=== PATIENT | male | born 1940 | race Caucasian/White ===

== ENCOUNTER 2018-11-27 18:09 | Inpatient (IN) | payer MEDICARE, OTHER | END 2018-12-01 15:39 | disposition home or self-care (01) | LOC: ER 18:09 → PCU 3S 11-28 09:20 → ED HOLD 21:38 | DX: G93.40 Encephalopathy, unspecified (principal); J96.02 Acute respiratory failure with hypercapnia; J96.01 Acute respiratory failure with hypoxia; J44.1 Chronic obstructive pulmonary disease with (acute) exacerbation ==

== ENCOUNTER 2021-03-27 09:13 | Inpatient (IN) | payer MEDICARE, OTHER ==
[~2021-03-27] VITALS: Ht 167.6 cm; Wt 72.3 kg
[~2021-03-27 09:13] MED LIST: ALBU18HF2 INH; ASCO500T20 PO; ASPI-1475 PO; ATOR10TA70 PO; CHOL100017 PO; CLOP75TA33 PO; CYAN500T71 PO; FAMO40TA7 PO; FERR325T29 PO; FLO0.4C PO; FLUT1DIS20 IH; FOLI0.4T14 PO; FURO-150 PO; ICOS1CAP PO; LEVO75TA7 PO; LISI-790 PO; METO-384 PO
[2021-03-27 09:52] LABS: BASOPHILS % (AUTO) 0.3 % (0-1); EOSINOPHILS # (AUTO) 0.1 X10'3 (0-0.9); EOSINOPHILS % (AUTO) 0.4 % (0-6); HEMATOCRIT 24.7 % (42.0-52.0); HEMOGLOBIN 7.7 g/dl (14.0-17.9); LYMPHOCYTES # (AUTO) 1.1 X10'3 (1.1-4.8); MEAN CORPUSCULAR HEMOGLOBIN 29.2 PG (27.0-31.0); MEAN CORPUSCULAR HGB CONC 31.3 g/dL (33.0-36.5); MEAN CORPUSCULAR VOLUME 93.1 FL (78-98); MEAN PLATELET VOLUME 7.3 FL (7.4-10.4); MONOCYTES # (AUTO) 1.1 X10'3 (0-0.9); MONOCYTES % (AUTO) 9.1 % (2-12); NEUTROPHILS # (AUTO) 10.2 X10'3 (1.8-7.7); NEUTROPHILS % (AUTO) 81.2 % (42-75); PLATELET COUNT 259 X10'3 (140-440); RED BLOOD COUNT 2.65 X10'6 (4.70-6.10); RED CELL DISTRIBUTION WIDTH 17.7 % (11.5-14.5); WHITE BLOOD COUNT 12.6 X10'3 (4.5-11.0)
[2021-03-27 10:07] LABS: ALANINE AMINOTRANSFERASE 13 U/L (12-78); ALBUMIN 2.7 G/DL (3.4-5.0); ALBUMIN/GLOBULIN RATIO 0.7 (1.1-1.5); ALKALINE PHOSPHATASE 99 IU/L (46-116); ANION GAP 5 (8-16); ASPARTATE AMINO TRANSFERASE 14 U/L (10-37); BILIRUBIN,TOTAL 0.6 MG/DL (0.1-1.0); BLOOD UREA NITROGEN 27 MG/DL (7-18); BUN/CREATININE RATIO 15.4 (5.4-32.0); CALCIUM 8.7 MG/DL (8.5-10.1); CHLORIDE 103 MMOL/L (99-107); CREATININE 1.75 MG/DL (0.60-1.10); GLUCOSE 96 MG/DL (70-104); POTASSIUM 5.1 MMOL/L (3.5-5.1); SODIUM 139 MMOL/L (135-145); TOTAL CARBON DIOXIDE 30.7 MMOL/L (24-32); TOTAL PROTEIN 6.7 G/DL (6.4-8.2); eGFR 38 ML/MIN
[2021-03-27] MEDS ORDERED: CefTRIAXone 2gm/D5W 50ml BAG 50 ML IV ONE (10:45)
[2021-03-27] MEDS ORDERED: azithromycin/NS 500mg/250ml 250 ML IV ONE (10:45)
[2021-03-27] MEDS ORDERED: furosemide 10 MG/1 ML 10ml inj IV ONE (11:05)
[2021-03-27] MEDS ORDERED: ondansetron/PF 4mg/2ml inj IV PRN (11:15)
[2021-03-27] MEDS ORDERED: HYDROcodone/acetaminophen 10/325mg tab PO PRN (11:15)
[2021-03-27] MEDS ORDERED: HYDROcodone/acetaminophen 5mg/325mg tablet PO PRN (11:15)
[2021-03-27] MEDS ORDERED: bisacodyl 10mg suppository rectal RC PRN (11:15)
[2021-03-27] MEDS ORDERED: magnesium 2GM in 50ml NS 50 ML IV PRN (11:15)
[2021-03-27] MEDS ORDERED: potassium Cl 20 mEq SR tablet PO PRN ×2 (11:15)
[2021-03-27] MEDS ORDERED: acetaminophen 325mg tablet PO PRN ×2 (11:15)
[2021-03-27] MEDS ORDERED: mag hydrox/Alum hydrox/simeth 30ml oral suspension PO PRN (11:15)
[2021-03-27] MEDS ORDERED: magnesium Cl slow-release 64mg tablet PO PRN (11:15)
[2021-03-27] MEDS ORDERED: magnesium hydroxide 30ml (MOM) UD suspension PO PRN (11:15)
[2021-03-27] MEDS ORDERED: magnesium 4gm in 100ml NS 100 ML IV PRN (11:15)
[2021-03-27] MEDS ORDERED: potassium Cl 40MEQ/1/2NS 520ml 520 ML IV PRN ×2 (11:15)
--- NOTE | 2021-03-27 16:26 | NUR ---
Patient in room ED 4. I have received report from Lamine JOSEPH and had the opportunity to ask questions and assume patient care.
[2021-03-27 17:00] VITALS: BP 115/40
--- NOTE | 2021-03-27 17:00 | NUR ---
Patient oriented to room. Call light within reach. at bedside. Vital signs in the intervention vital signs routine.
[2021-03-27 18:00] VITALS: BP 104/45
--- NOTE | 2021-03-27 18:30 | NUR ---
Problems reprioritized. Patient report given, questions answered & plan of care reviewed with Jacki JOSEPH. Patient stable at transfer of care.
--- NOTE | 2021-03-27 18:35 | NUR ---
Patient in room PCU 3026. I have received report from Anastasiya JOSEPH and had the opportunity to ask questions and assume patient care. Rounded on patient and introduced self. Discussed plan of care for the evening, patient denies needs.
[2021-03-27] MEDS ORDERED: methylPREDNISolone sod succ 125mg/2ml vial IV ONE (19:00)
[2021-03-27] MEDS: methylPREDNISolone sod succ 125mg/2ml vial IV SCH (20:00)
[2021-03-27] MEDS ORDERED: furosemide 20 MG/2 ML vial IV SCH (20:00)
[2021-03-27] MEDS: K and/or MAG REPLACEMENT MC SCH (20:00)
[2021-03-27] MEDS ORDERED: temazepam 15mg capsule PO PRN (21:00)
[2021-03-27 22:00] VITALS: BP 123/48
[2021-03-27] MEDS: heparin, porcine 5000 units/ml vial SQ SCH (22:02)
--- NOTE | 2021-03-27 22:31 | NUR ---
Doctor paged regarding blood tansfusion PAGER ID: [phone] MESSAGE: Re: Jarvis Marvin 80M rm [id number] Here for CHF exac, anemia, and poss. PNA. Conflicting orders for blood transfusion consent, consent reacquired needing MD signature. Do you want a redraw H/H prior to initiating transfusion? Jacki [phone]
--- NOTE | 2021-03-27 22:33 | NUR ---
Spoke with Dr. Almanza regarding blood transfusion consent. wants to redraw H/H prior to acquiring written consent and initiating blood.
[2021-03-27] MEDS: ipratropium/albuterol 3ml nebule NEB SCH (23:25)
[2021-03-28] VITALS (7 sets, daily range): BP systolic 108–134; BP diastolic 44–53
[2021-03-28 01:23] LABS: BASOPHILS % (AUTO) 0.1 % (0-1); EOSINOPHILS % (AUTO) 0 % (0-6); HEMATOCRIT 24.4 % (42.0-52.0); HEMOGLOBIN 7.8 g/dl (14.0-17.9); LYMPHOCYTES # (AUTO) 0.7 X10'3 (1.1-4.8); LYMPHOCYTES % (AUTO) 5.1 % (21-51); MEAN CORPUSCULAR HEMOGLOBIN 29.5 PG (27.0-31.0); MEAN CORPUSCULAR HGB CONC 31.9 g/dL (33.0-36.5); MEAN CORPUSCULAR VOLUME 92.4 FL (78-98); MEAN PLATELET VOLUME 7.7 FL (7.4-10.4); MONOCYTES # (AUTO) 0.2 X10'3 (0-0.9); MONOCYTES % (AUTO) 1.6 % (2-12); NEUTROPHILS # (AUTO) 12.1 X10'3 (1.8-7.7); NEUTROPHILS % (AUTO) 93.2 % (42-75); PLATELET COUNT 261 X10'3 (140-440); RED BLOOD COUNT 2.64 X10'6 (4.70-6.10); RED CELL DISTRIBUTION WIDTH 17.8 % (11.5-14.5)
[2021-03-28 01:34] LABS: ALANINE AMINOTRANSFERASE 10 U/L (12-78); ALBUMIN 2.6 G/DL (3.4-5.0); ALBUMIN/GLOBULIN RATIO 0.7 (1.1-1.5); ALKALINE PHOSPHATASE 97 IU/L (46-116); ANION GAP 7 (8-16); ASPARTATE AMINO TRANSFERASE 13 U/L (10-37); BILIRUBIN,TOTAL 0.5 MG/DL (0.1-1.0); BLOOD UREA NITROGEN 29 MG/DL (7-18); BUN/CREATININE RATIO 15.2 (5.4-32.0); CALCIUM 8.5 MG/DL (8.5-10.1); CHLORIDE 103 MMOL/L (99-107); CREATININE 1.91 MG/DL (0.60-1.10); GLUCOSE 192 MG/DL (70-104); MAGNESIUM 2.2 MG/DL (1.5-2.4); POTASSIUM 4.7 MMOL/L (3.5-5.1); SODIUM 141 MMOL/L (135-145); TOTAL CARBON DIOXIDE 31.3 MMOL/L (24-32); TOTAL PROTEIN 6.6 G/DL (6.4-8.2); eGFR 34 ML/MIN
--- NOTE | 2021-03-28 01:42 | NUR ---
Doctor Paged PAGER ID: [phone] MESSAGE: Re: Jarvis Marvin 80M rm [id number] Here for Poss CHF exac, PNA, Anemia. Pt H/H has resulted HgB 7.8. Do you want to transfuse? Jacki [phone]
--- NOTE | 2021-03-28 01:43 | NUR ---
Spoke with Dr. Almanza regarding H/H result, Dr. restrepo holding off on transfusion. Previous H/H was 7.7 at 0937 03/27 and 7.8 at 0020 03/28.
[2021-03-28] MEDS: methylPREDNISolone sod succ 125mg/2ml vial IV SCH ×3 (02:01→13:53)
[2021-03-28] MEDS: ipratropium/albuterol 3ml nebule NEB SCH ×4 (02:42→15:32)
--- NOTE | 2021-03-28 05:46 | NUR ---
Found a progress note indicating patient was to be transfused due to HgB 7.7. The order for consent was "emergent" and the [facility] stated "No Active Bleeding", the blood bank would not release blood due to conflicting orders. Did not have signed consent in paper chart and could not located consent in ED. Spoke with Dr. Almanza regarding this issue and he wanted to redraw the H/H before acquiring consent from patient. Notified Cami of the H/H now 7.8, he wanted to wait until the admitting doctor returned before going forward with transfusion. Will notify day nurse.
--- NOTE | 2021-03-28 05:50 | NUR ---
Patient slept comfortably all night
--- NOTE | 2021-03-28 06:24 | NUR ---
Problems reprioritized. Patient report given, questions answered & plan of care reviewed with Anastasiya JOSEPH.
--- NOTE | 2021-03-28 06:31 | NUR ---
Patient in room PCU 3026. I have received report from Jacki JOSEPH and had the opportunity to ask questions and assume patient care.
[2021-03-28] MEDS: heparin, porcine 5000 units/ml vial SQ SCH (07:58)
[2021-03-28] MEDS ORDERED: CefTRIAXone/D5W-Rocephin 1gm 50 ML IV SCH (08:00)
[2021-03-28] MEDS ORDERED: azithromycin 250mg tablet PO SCH (08:00)
[2021-03-28] MEDS: K and/or MAG REPLACEMENT MC SCH (08:00)
[2021-03-28 14:54] LABS: HEMATOCRIT 24.8 % (42.0-52.0); HEMOGLOBIN 8.2 g/dl (14.0-17.9); MEAN CORPUSCULAR HEMOGLOBIN 30.1 PG (27.0-31.0); MEAN CORPUSCULAR HGB CONC 33.1 g/dL (33.0-36.5); MEAN PLATELET VOLUME 7.4 FL (7.4-10.4); PLATELET COUNT 249 X10'3 (140-440); RED BLOOD COUNT 2.73 X10'6 (4.70-6.10); RED CELL DISTRIBUTION WIDTH 16.8 % (11.5-14.5); WHITE BLOOD COUNT 9.2 X10'3 (4.5-11.0)
[2021-03-28] MEDS ORDERED: AZIT500T2 PO (15:20)
[2021-03-28] MEDS ORDERED: CEFD300C3 PO (15:20)
[2021-03-28] MEDS ORDERED: PRED20TA PO (15:20)
--- NOTE | 2021-03-28 16:04 | NUR ---
Patient stable for discharge per doctors orders. Medication and discharge discussed. PIV discontinued cannula intact. Telemetry discontinued. Belongings sent with patient. Wheeled to lobby via nursing staff. Went home with spouse in private vehicle.
[2021-03-28] MEDS ORDERED: lactobacillus rhamnosus 10,000 MMU CELLS/CAPSULE PO SCH (20:00)
--- NOTE | 2021-03-29 14:30 | NUR ---
CASE MANAGEMENT DISCHARGE FOLLOW UP: Spoke with pt's , Neto, via telephone as pt is currently not available. Reports that pt is doing just great; denies pt c/o SOB, CP, weakness/dizziness, fever/chills. States pt wearing 2L/min O2 via NC but that this is his baseline. Verbalizes understanding of s/sx requiring further evaluation/emergent assistance. Verbalizes understanding of new and current medications. Verbalizes compliance with MD discharge instructions. Verbalizes understanding of the importance in making/keeping follow-up appointments, waiting on callback from pt's PMD for appointment, aware that pt will need to get referral for either well services operator or process worker regarding anemia. She states no further questions/concerns at this time.
== END 2021-03-28 16:04 | disposition home or self-care (01) | DRG 193 ==
LOC: ER 09:14 → ED HOLD 11:14 → PCU 3S 16:47
PROVIDERS: ADMIT Family Medicine; ATTEND Family Medicine
PROC: 30233N1 Transfusion of Nonautologous Red Blood Cells into Peripheral Vein, Percutaneous Approach (ICD-10-PCS; principal; 2021-03-28)
DX: J18.9 Pneumonia, unspecified organism (principal); J96.01 Acute respiratory failure with hypoxia; I13.0 Hypertensive heart and chronic kidney disease with heart failure and stage 1 through stage 4 chronic kidney disease, or unspecified chronic kidney disease; J44.0 Chronic obstructive pulmonary disease with (acute) lower respiratory infection; J44.1 Chronic obstructive pulmonary disease with (acute) exacerbation; N18.4 Chronic kidney disease, stage 4 (severe); D46.9 Myelodysplastic syndrome, unspecified; Z20.822 Contact with and (suspected) exposure to COVID-19; G47.30 Sleep apnea, unspecified; E03.9 Hypothyroidism, unspecified; E11.22 Type 2 diabetes mellitus with diabetic chronic kidney disease; E78.5 Hyperlipidemia, unspecified; I25.10 Atherosclerotic heart disease of native coronary artery without angina pectoris; I50.9 Heart failure, unspecified; Z91.041 Radiographic dye allergy status; Z79.899 Other long term (current) drug therapy; Z79.82 Long term (current) use of aspirin; Z83.3 Family history of diabetes mellitus; Z82.49 Family history of ischemic heart disease and other diseases of the circulatory system
CPT/HCPCS: 36415; 36430; 71045; 80053; 83605; 83735; 83880; 84145; 84484; 85025; 85027; 86885; 86900; 86901; 86920; 87040; 87081; 87635; 93005; 94640; 94760; 99285; G0378; J0456; J0696; J1644; J1940; J2930; P9016

== ENCOUNTER 2021-05-16 15:38 | Observation (INO) | payer MEDICARE, OTHER ==
[~2021-05-16] VITALS: Ht 167.6 cm; Wt 78.0 kg
--- NOTE | 2021-05-16 16:51 | NUR ---
PT WAS ON .5 L OF FIO2 IN TRIGE WITH SATS IN MID 70'. FIO2 WAS INCREASED TO 2-3 L WITH NO CHANGE. NOTED THAT PT'S O2 TANK WAS ALMOST EMPTY, CHANGED HIS TANK OUT FOR AN ER TANK AND AT 2 L FIO2 WAS 100%. FIO2 WAS DECREASED TO 1 L.
[2021-05-16 17:21] LABS: BASOPHILS # (AUTO) 0.1 X10'3 (0-0.2); BASOPHILS % (AUTO) 0.7 % (0-1); EOSINOPHILS % (AUTO) 0.2 % (0-6); LYMPHOCYTES # (AUTO) 0.6 X10'3 (1.1-4.8); LYMPHOCYTES % (AUTO) 7.3 % (21-51); MEAN CORPUSCULAR HGB CONC 31.8 g/dL (33.0-36.5); MEAN CORPUSCULAR VOLUME 100.6 FL (78-98); MEAN PLATELET VOLUME 7.7 FL (7.4-10.4); MONOCYTES # (AUTO) 0.1 X10'3 (0-0.9); MONOCYTES % (AUTO) 1.6 % (2-12); NEUTROPHILS # (AUTO) 7.6 X10'3 (1.8-7.7); NEUTROPHILS % (AUTO) 90.2 % (42-75); PLATELET COUNT 226 X10'3 (140-440); RED CELL DISTRIBUTION WIDTH 18.4 % (11.5-14.5); WHITE BLOOD COUNT 8.5 X10'3 (4.5-11.0)
[2021-05-16 17:25] LABS: HEMATOCRIT 21.2 % (42.0-52.0); HEMOGLOBIN 6.7 g/dl (14.0-17.9)
[2021-05-16 17:35] LABS: ALBUMIN 3.4 G/DL (3.4-5.0); ALKALINE PHOSPHATASE 91 IU/L (46-116); ANION GAP 6 (8-16); BILIRUBIN,TOTAL 0.3 MG/DL (0.1-1.0); BLOOD UREA NITROGEN 43 MG/DL (7-18); BUN/CREATININE RATIO 20.8 (5.4-32.0); CALCIUM 8.2 MG/DL (8.5-10.1); CHLORIDE 108 MMOL/L (99-107); CREATININE 2.07 MG/DL (0.60-1.10); GLUCOSE 153 MG/DL (70-104); SODIUM 143 MMOL/L (135-145); TOTAL CARBON DIOXIDE 28.6 MMOL/L (24-32); TOTAL PROTEIN 6.9 G/DL (6.4-8.2); eGFR 31 ML/MIN
[2021-05-16 18:29] LABS: ALANINE AMINOTRANSFERASE 23 U/L (12-78); ASPARTATE AMINO TRANSFERASE 24 U/L (10-37)
[2021-05-16 18:32] LABS: POTASSIUM 5.9 MMOL/L (3.5-5.1)
[2021-05-16] MEDS ORDERED: furosemide 40mg/4ml inj IV ONE (19:35)
[2021-05-16] MEDS ORDERED: normal saline 1000ML IV soln IVB ONE (19:35)
[2021-05-16 19:41] VITALS: BP 151/61
[2021-05-16 19:56] VITALS: BP 154/64
[2021-05-16 20:11] VITALS: BP 154/64
[2021-05-16 20:26] VITALS: BP 152/62
[2021-05-16 20:41] VITALS: BP 149/62
[2021-05-16] MEDS ORDERED: magnesium hydroxide 30ml (MOM) UD suspension PO PRN (20:55)
[2021-05-16] MEDS ORDERED: mag hydrox/Alum hydrox/simeth 30ml oral suspension PO PRN (20:55)
[2021-05-16] MEDS ORDERED: normal saline 1000ml 1,000 ML IV SCH (20:55)
[2021-05-16] MEDS ORDERED: acetaminophen 325mg tablet PO PRN (20:55)
[2021-05-16] MEDS ORDERED: ondansetron/PF 4mg/2ml inj IV PRN (20:55)
[2021-05-16 22:20] VITALS: BP 151/65
[2021-05-17] VITALS (11 sets, daily range): BP systolic 130–166; BP diastolic 45–72
--- NOTE | 2021-05-17 07:00 | NUR ---
Patient in room ED 4. I have received report from Cyndie JOSEPH in ER and had the opportunity to ask questions will assume patient care when he comes to the floor.
[2021-05-17] MEDS ORDERED: UMEC62.5 INH (07:45)
[2021-05-17 07:49] LABS: BASOPHILS % (AUTO) 0.2 % (0-1); EOSINOPHILS % (AUTO) 0.1 % (0-6); HEMATOCRIT 26.9 % (42.0-52.0); HEMOGLOBIN 8.8 g/dl (14.0-17.9); LYMPHOCYTES # (AUTO) 0.7 X10'3 (1.1-4.8); LYMPHOCYTES % (AUTO) 10.8 % (21-51); MEAN CORPUSCULAR HEMOGLOBIN 31.5 PG (27.0-31.0); MEAN CORPUSCULAR HGB CONC 32.6 g/dL (33.0-36.5); MEAN CORPUSCULAR VOLUME 96.7 FL (78-98); MONOCYTES # (AUTO) 0.6 X10'3 (0-0.9); MONOCYTES % (AUTO) 9.8 % (2-12); NEUTROPHILS # (AUTO) 5.2 X10'3 (1.8-7.7); NEUTROPHILS % (AUTO) 79.1 % (42-75); PLATELET COUNT 220 X10'3 (140-440); RED BLOOD COUNT 2.78 X10'6 (4.70-6.10); RED CELL DISTRIBUTION WIDTH 19.3 % (11.5-14.5); WHITE BLOOD COUNT 6.6 X10'3 (4.5-11.0)
[2021-05-17 08:17] LABS: ALANINE AMINOTRANSFERASE 28 U/L (12-78); ALBUMIN 3.3 G/DL (3.4-5.0); ALBUMIN/GLOBULIN RATIO 0.9 (1.1-1.5); ALKALINE PHOSPHATASE 83 IU/L (46-116); ANION GAP 8 (8-16); ASPARTATE AMINO TRANSFERASE 26 U/L (10-37); BILIRUBIN,TOTAL 0.4 MG/DL (0.1-1.0); BLOOD UREA NITROGEN 47 MG/DL (7-18); CALCIUM 8.2 MG/DL (8.5-10.1); CHLORIDE 107 MMOL/L (99-107); CREATININE 1.88 MG/DL (0.60-1.10); GLUCOSE 119 MG/DL (70-104); POTASSIUM 5.3 MMOL/L (3.5-5.1); SODIUM 145 MMOL/L (135-145); TOTAL CARBON DIOXIDE 30.4 MMOL/L (24-32); TOTAL PROTEIN 6.9 G/DL (6.4-8.2); eGFR 35 ML/MIN
[2021-05-17] MEDS ORDERED: magnesium 4gm in 100ml NS 100 ML IV PRN (08:20)
[2021-05-17] MEDS ORDERED: potassium Cl 20 mEq SR tablet PO PRN ×2 (08:20)
[2021-05-17] MEDS ORDERED: magnesium Cl slow-release 64mg tablet PO PRN (08:20)
[2021-05-17] MEDS ORDERED: potassium Cl 40MEQ/1/2NS 520ml 520 ML IV PRN (08:20)
[2021-05-17] MEDS ORDERED: ferrous sulfate 325mg tablet PO SCH (08:29)
[2021-05-17] MEDS ORDERED: metoprolol succinate 25mg (24-HOUR) SR. Tablet PO SCH (08:29)
[2021-05-17] MEDS ORDERED: albuterol 2.5 MG/3 ML nebule NEB PRN (08:30)
[2021-05-17] MEDS ORDERED: famotidine 20mg tablet PO SCH (08:35)
[2021-05-17] MEDS ORDERED: budesonide 0.5mg/2ml UD nebule IH SCH (08:36)
[2021-05-17] MEDS ORDERED: cholecalciferol (vitamin D3) 1,000 unit (25mcg) tablet PO SCH (08:42)
[2021-05-17] MEDS ORDERED: furosemide 20MG tablet PO SCH (08:43)
[2021-05-17] MEDS ORDERED: folic acid 1mg tablet PO SCH (08:43)
[2021-05-17] MEDS ORDERED: tamsulosin 0.4mg capsule PO SCH (08:43)
[2021-05-17] MEDS ORDERED: lisinopril 5mg tablet PO SCH (08:44)
[2021-05-17] MEDS ORDERED: ipratropium/albuterol 3ml nebule IH SCH (09:00)
[2021-05-17 09:43] LABS: ANISOCYTOSIS 2+; PLATELET ESTIMATE NORMAL; SCHISTOCYTES FEW
[2021-05-17] MEDS ORDERED: methylPREDNISolone sod succ 125mg/2ml vial IV ONE (10:15)
[2021-05-17] MEDS ORDERED: ipratropium/albuterol 3ml nebule NEB SCH (10:15)
[2021-05-17] MEDS ORDERED: PRED10TA23 PO ×2 (10:40)
[2021-05-17] MEDS ORDERED: levoTHYROXINE 75mcg tablet PO SCH (11:00)
--- NOTE | 2021-05-17 11:24 | NUR ---
Malnutrition Consult: Pt admit for transfusion given DX anemia hx chronic anemia of unknown etiology since 2013 w/ lymphopenia per MD note. Pt takes iron, B12, folic at home w/ MCV WNL at this time per EMR. Pending physical assessment as well as scaled wt though prior scaled vs reported wts fluctuate between 72-86kg since January. LILLIAM d/w RN reports pt appears WD/WN at this time w/ no visible signs of muscle/fat wasting evident. Given fluctuating wt hx and visible appearance pt lacks minimum two malnutrition criteria at this time. Will continue to monitor for additional malnutrition criteria this admit. Addendum: 05/17/21 at [address] Amended: Links added.
--- NOTE | 2021-05-17 13:45 | NUR ---
Patients discharge reviewed with patient and patient verbalized understanding at bedside. Dc'd patients IV's cannulas intact. Dc'd Tele for discharge. Patient taken to 's vehicle via wheelchair. Patient is wearing home oxygen.
[2021-05-17] MEDS ORDERED: ascorbic acid 500mg tablet PO SCH (20:00)
[2021-05-17] MEDS ORDERED: K and/or MAG REPLACEMENT MC SCH (20:00)
[2021-05-17] MEDS ORDERED: ICOSAPENT ETHYL 1 GM PO SCH (20:00)
[2021-05-17] MEDS ORDERED: atorvastatin 10mg tablet PO SCH (21:00)
[2021-05-18] MEDS ORDERED: cyanocobalamin 500mcg tablet PO SCH (08:00)
[2021-06-01] MEDS ORDERED: FURO20TA4 PO (06:31)
[2021-06-01] MEDS ORDERED: FAMO40TA8 PO (06:31)
[2021-06-03] MEDS ORDERED: ALBU2.5V7 NEB (09:32)
[2021-06-03] MEDS ORDERED: PRED10TA23 PO (09:34)
== END 2021-05-17 13:30 | disposition home or self-care (01) ==
LOC: ER 15:39 → ED HOLD 20:52 → ORTHO 4S 05-17 07:27
PROVIDERS: ADMIT Internal Medicine; ATTEND Family Medicine
DX: D64.9 Anemia, unspecified (principal); E87.5 Hyperkalemia; E03.9 Hypothyroidism, unspecified; E78.5 Hyperlipidemia, unspecified; K21.9 Gastro-esophageal reflux disease without esophagitis; I25.10 Atherosclerotic heart disease of native coronary artery without angina pectoris; E11.22 Type 2 diabetes mellitus with diabetic chronic kidney disease; I13.0 Hypertensive heart and chronic kidney disease with heart failure and stage 1 through stage 4 chronic kidney disease, or unspecified chronic kidney disease; I50.9 Heart failure, unspecified; N18.9 Chronic kidney disease, unspecified; Z88.8 Allergy status to other drugs, medicaments and biological substances; Z79.02 Long term (current) use of antithrombotics/antiplatelets; Z79.82 Long term (current) use of aspirin; Z79.899 Other long term (current) drug therapy; Z87.891 Personal history of nicotine dependence; Z95.5 Presence of coronary angioplasty implant and graft
CPT/HCPCS: 36415; 36430; 80053; 82948; 85008; 85025; 86885; 86900; 86901; 86920; 87081; 94640; 94760; 96361; 96374; 96375; 99285; G0378; J1940; J2930; J7030; P9016; J7626

== ENCOUNTER 2021-07-28 07:59 | Inpatient (IN) | payer MEDICARE, OTHER ==
[~2021-07-28] VITALS: Ht 167.6 cm; Wt 78.0 kg
[~2021-07-28 07:59] MED LIST changes: +ALBU2.5V10 NEB; -FAMO40TA7 PO; +FAMO40TA8 PO; -FURO-150 PO; +FURO20TA4 PO; -LISI-790 PO; +PRED20TA PO; +UMEC62.5 INH
--- NOTE | 2021-07-28 08:19 | NUR ---
Patient unresponsive to sternal rub at bedside and SOB noted. Placed on 15L non-rebreather. HR decreased to 60's. Dr. Keith at bedside. HR improved to 90's. Sp02 100%. Will continue to monitor.
[2021-07-28] MEDS ORDERED: naloxone 2mg/2ml inj ONE (08:20)
[2021-07-28 08:47] LABS: BASOPHILS # (AUTO) 0.1 X10'3 (0-0.2); BASOPHILS % (AUTO) 0.5 % (0-1); EOSINOPHILS % (AUTO) 0.1 % (0-6); HEMATOCRIT 27.1 % (42.0-52.0); HEMOGLOBIN 8.2 g/dl (14.0-17.9); LYMPHOCYTES # (AUTO) 2.1 X10'3 (1.1-4.8); LYMPHOCYTES % (AUTO) 17.1 % (21-51); MEAN CORPUSCULAR HEMOGLOBIN 29.7 PG (27.0-31.0); MEAN CORPUSCULAR HGB CONC 30.1 g/dL (33.0-36.5); MEAN CORPUSCULAR VOLUME 98.5 FL (78-98); MEAN PLATELET VOLUME 7.9 FL (7.4-10.4); MONOCYTES # (AUTO) 1.6 X10'3 (0-0.9); NEUTROPHILS # (AUTO) 8.4 X10'3 (1.8-7.7); NEUTROPHILS % (AUTO) 69.3 % (42-75); PLATELET COUNT 342 X10'3 (140-440); RED BLOOD COUNT 2.75 X10'6 (4.70-6.10); RED CELL DISTRIBUTION WIDTH 16.7 % (11.5-14.5); WHITE BLOOD COUNT 12.2 X10'3 (4.5-11.0)
[2021-07-28 09:00] LABS: ALANINE AMINOTRANSFERASE 62 U/L (12-78); ALBUMIN 3.4 G/DL (3.4-5.0); ALBUMIN/GLOBULIN RATIO 0.9 (1.1-1.5); ALKALINE PHOSPHATASE 103 IU/L (46-116); ANION GAP 7 (8-16); ASPARTATE AMINO TRANSFERASE 60 U/L (10-37); BILIRUBIN,TOTAL 0.7 MG/DL (0.1-1.0); BLOOD UREA NITROGEN 55 MG/DL (7-18); BUN/CREATININE RATIO 23.5 (5.4-32.0); CALCIUM 8.7 MG/DL (8.5-10.1); CHLORIDE 104 MMOL/L (99-107); CREATININE 2.34 MG/DL (0.60-1.10); GLUCOSE 170 MG/DL (70-104); SODIUM 142 MMOL/L (135-145); TOTAL CARBON DIOXIDE 30.9 MMOL/L (24-32); TOTAL PROTEIN 7.3 G/DL (6.4-8.2); eGFR 27 ML/MIN
[2021-07-28 09:07] LABS: POTASSIUM 6.1 MMOL/L (3.5-5.1)
[2021-07-28 09:24] LABS: NUCLEATED RED BLOOD CELLS 3 /100WBC (0-0); TOTAL CELLS COUNTED 100
[2021-07-28 09:25] LABS: ANISOCYTOSIS 1+; HYPOCHROMASIA 1+; PLATELET ESTIMATE NORMAL; POLYCHROMASIA 2+
[2021-07-28 09:26] LABS: SCHISTOCYTES FEW; TEAR DROP CELLS FEW
[2021-07-28] MEDS ORDERED: insulin regular, human U-100 3ml vial - multi-dose IV ONE (09:45)
[2021-07-28] MEDS ORDERED: calcium chloride 100 MG/1 ML inj IV ONE (09:45)
[2021-07-28] MEDS ORDERED: levoFLOXACIN-Levaquin 500mg/D5 100 ML IV ONE (09:45)
[2021-07-28] MEDS ORDERED: dextrose 50%-water 50ml dispensing syringe IV ONE (09:45)
[2021-07-28] MEDS ORDERED: furosemide 40mg/4ml inj IV ONE (09:45)
[2021-07-28] MEDS ORDERED: ipratropium 0.5 MG/2.5ML nebule IH ONE (09:55)
[2021-07-28] MEDS ORDERED: albuterol 2.5 MG/3 ML nebule CONTNEB PRN (09:55)
[2021-07-28 10:18] LABS: UA COLLECTION TYPE STRAIGHT CATH
[2021-07-28 10:19] LABS: CLARITY,URINE CLOUDY (Clear); COLOR,URINE YELLOW (Yellow); GLUCOSE, URINE NEGATIVE (Neg); KETONES,URINE NEGATIVE (Neg); NITRITES, URINE NEGATIVE (Neg); OCCULT BLOOD,URINE TRACE-INTACT (Neg); PROTEIN,URINE 300 mg/dl (Neg); UROBILINOGEN,URINE 0.2 E.U/dL (0.2-1.0)
[2021-07-28 10:20] LABS: LEUKOCYTE ESTERASE ,URINE LARGE (Neg)
[2021-07-28 10:22] LABS: ABG BASE EXCESS 5.3 mmol/L (-2.0-2.0); ABG HCO3 35.6 mmol/L (22.0-26.0); ABG PCO2 (T) 100.6 mmHg (35.0-48.0); ABG PO2 (T) 91.3 mmHg (75.0-100.0); ALLEN'S TEST POSITIVE; FCOHb 1.6 % (0.0-3.9); FLOW 4 L/min; FMetHb 0.4 % (0.0-1.5); FO2Hb 93.1 % (94-97); TOTAL HEMOGLOBIN 8.9 G/dl (14.0-18.0)
--- NOTE | 2021-07-28 10:23 | NUR ---
Patient is responsive to voice but drowsy.
[2021-07-28 10:26] LABS: BACTERIA,URINE 3+ /HPF (Neg); MUCUS STRANDS NONE SEEN /LPF (Neg); RBC,URINE 0-2 /HPF (0-2); SQUAMOUS EPITHELIAL CELL,UR NONE SEEN /LPF (FEW); WBC CLUMPS,URINE MANY /HPF (NEGATIVE); WBC,URINE TNTC /HPF (0-4)
[2021-07-28 11:44] LABS: ABG BASE EXCESS 4.1 mmol/L (-2.0-2.0); ABG HCO3 32.3 mmol/L (22.0-26.0); ABG OXYGEN SATURATION 93.7 % (94-97); ABG PCO2 (T) 74.3 mmHg (35.0-48.0); ABG PO2 (T) 77.9 mmHg (75.0-100.0); ALLEN'S TEST POSITIVE; FCOHb 1.3 % (0.0-3.9); FMetHb 0.4 % (0.0-1.5); FO2Hb 92.1 % (94-97); RESPIRATORY RATE 24 b/min; TIDAL VOLUME 595 mL; TOTAL HEMOGLOBIN 8.5 G/dl (14.0-18.0)
--- NOTE | 2021-07-28 12:35 | NUR ---
Pt resting on bed with bi-pap in place. Pt has family member at bedside.
[2021-07-28] MEDS ORDERED: MESSAGE TO PHARMACY PO ONE (12:45)
[2021-07-28] MEDS ORDERED: magnesium 4gm in 100ml NS 100 ML IV PRN (12:45)
[2021-07-28] MEDS ORDERED: magnesium 2GM in 50ml NS 50 ML IV PRN (12:45)
[2021-07-28] MEDS ORDERED: potassium Cl 40MEQ/1/2NS 520ml 520 ML IV PRN ×2 (12:45)
[2021-07-28] MEDS ORDERED: dextrose 50%-water 50ml dispensing syringe IV PRN ×2 (12:45)
[2021-07-28] MEDS ORDERED: acetaminophen 325mg tablet PO PRN (12:45)
[2021-07-28] MEDS ORDERED: magnesium Cl slow-release 64mg tablet PO PRN (12:45)
[2021-07-28] MEDS ORDERED: morphine 2 MG/ML inj. syringe IV PRN (12:45)
[2021-07-28] MEDS ORDERED: glucagon, human recombinant 1mg kit SUBCUT PRN (12:45)
[2021-07-28] MEDS ORDERED: ondansetron/PF 4mg/2ml inj IV PRN (12:45)
[2021-07-28] MEDS ORDERED: HYDROcodone/acetaminophen 5mg/325mg tablet PO PRN (12:45)
[2021-07-28] MEDS ORDERED: potassium Cl 20 mEq SR tablet PO PRN ×2 (12:45)
[2021-07-28] MEDS ORDERED: insulin Lispro (HumaLOG) vial - multi-dose SQ SCH (12:45)
[2021-07-28] MEDS ORDERED: dextrose ORAL solution 15 GM/59 ML bottle PO PRN ×2 (12:45)
[2021-07-28] MEDS ORDERED: HYDROcodone/acetaminophen 10/325mg tab PO PRN (12:45)
[2021-07-28] MEDS ORDERED: magnesium hydroxide 30ml (MOM) UD suspension PO PRN (12:45)
[2021-07-28] MEDS ORDERED: mag hydrox/Alum hydrox/simeth 30ml oral suspension PO PRN (12:45)
[2021-07-28] MEDS ORDERED: ALBUTEROL INHALER 1 PUFF/90 MCG INHALER IH PRN (13:05)
[2021-07-28 15:35] LABS: HEMOGLOBIN A1C 6.2 % (4.5-6.2)
[2021-07-28] MEDS: ipratropium 0.5 MG/2.5ML nebule NEB SCH ×2 (16:20→20:09)
--- NOTE | 2021-07-28 19:57 | NUR ---
Patient in room ED 1. I have received report from JONA JOSEPH and had the opportunity to ask questions and assume patient care.
[2021-07-28] MEDS: K and/or MAG REPLACEMENT MC SCH (20:00)
[2021-07-28] MEDS: lactobacillus rhamnosus 10,000 MMU CELLS/CAPSULE PO SCH (20:00)
[2021-07-28] MEDS: budesonide 0.5mg/2ml UD nebule IH SCH (20:09)
[2021-07-28 21:00] VITALS: BP 142/112
[2021-07-28] MEDS: insulin glargine (Lantus) pen - multi-dose SQ SCH (21:00)
[2021-07-28 21:15] VITALS: BP 110/64
[2021-07-28] MEDS: ascorbic acid 500mg tablet PO SCH (21:16)
[2021-07-28] MEDS: ferrous sulfate 325mg tablet PO SCH (21:16)
[2021-07-28] MEDS: atorvastatin 10mg tablet PO SCH (21:16)
[2021-07-28] MEDS: docusate sod 100mg capsule PO SCH (21:16)
[2021-07-28] MEDS: famotidine 20mg tablet PO SCH (21:16)
[2021-07-28 21:30] VITALS: BP 92/62
[2021-07-28 22:00] VITALS: BP 149/82
[2021-07-28 22:30] VITALS: BP 139/77
--- NOTE | 2021-07-28 22:36 | NUR ---
blood glucose upon arrival 75-patient had not eaten all day-had patient eat sandwich and drink oj. blood glucose now 152. will continue to monitor, nonadmiotted lantus at 2130, due to low blood glucose. will inform am RN. Potassium high 6.1 in ER. chris JOSEPH
[2021-07-28 23:00] VITALS: BP 139/77
--- NOTE | 2021-07-28 23:57 | NUR ---
Patient heart rate dropped to 36, Coolest Cooler alerted me, ran into room, patient's bipap mask was askew on patients face, patients lips/face purple, body slumped in bed. Tatyana Buenrostro immediately called, reattached facial mask,; RT arrived, Brian RT thrust jaw forward to facilitate air flow. patient repositioned, crash cart at bedside, pads attached, remaining staff arrived, namely BUSINESS TECHNOLOGY ANALYST, BD Baumeshr, MD Chu, housetrailer servicer, lab. CXR ordered, eSolar tech arrived. patient wqs repositioned while ABG drawn. ABG results acidotic, calling to MD Chu. Patient may benefit from Lasix, as COPD and CHF exacerbation, presented in ER on admission. Patient obtunded at home prior to EMS arrival per chart note. Patient took several minutes to arose, vital signs retaken at 0019 temp 97.4 axillary, BP 157/96, pulse 126, RR 16, SPO2 ON 30% FIO2. MAUREEN JOSEPH Addendum: 07/29/21 at 0046 by Laura Barbosa RN DR. CHU PAGED, NEW ORDER FOR ABG IN ONE HR, LASIX 20 MG XONE NOW FOR FLUID OVERLOAD. MAUREEN JOSEPH
[2021-07-29] VITALS (10 sets, daily range): BP systolic 106–164; BP diastolic 62–96
[2021-07-29 00:09] LABS: ABG BASE EXCESS 4.8 mmol/L (-2.0-2.0); ABG HCO3 34.1 mmol/L (22.0-26.0); ABG OXYGEN SATURATION 99.5 % (94-97); ABG PCO2 (T) 86.9 mmHg (35.0-48.0); ABG PO2 (T) 323.9 mmHg (75.0-100.0); ALLEN'S TEST Modified; FCOHb 0.5 % (0.0-3.9); FMetHb 0.3 % (0.0-1.5); FO2Hb 98.7 % (94-97); RESPIRATORY RATE 18 b/min
--- NOTE | 2021-07-29 00:19 | NUR ---
PAGER ID: [phone] MESSAGE: [id number]- Jarvis Marvin- JENA resulted, acidotic. patient alert and oriented now. May benefit from Lasix for CHF exacerbation, lungs "wet" sounding. Please call Laura [phone] for Tatyana Blue follow up. Thanks
[2021-07-29] MEDS ORDERED: furosemide 20 MG/2 ML vial IV ONE (00:50)
[2021-07-29] MEDS: ipratropium 0.5 MG/2.5ML nebule NEB SCH ×4 (02:50→19:48)
[2021-07-29 03:01] LABS: ABG BASE EXCESS 9.3 mmol/L (-2.0-2.0); ABG HCO3 37.5 mmol/L (22.0-26.0); ABG PCO2 (T) 76.9 mmHg (35.0-48.0); ABG PO2 (T) 437.3 mmHg (75.0-100.0); ALLEN'S TEST POSITIVE; FCOHb 0.3 % (0.0-3.9); FMetHb 0.4 % (0.0-1.5); FO2Hb 99.3 % (94-97); PATIENT TEMPERATURE 36.4; RESPIRATORY RATE 18 b/min; TOTAL HEMOGLOBIN 8.6 G/dl (14.0-18.0)
--- NOTE | 2021-07-29 06:00 | NUR ---
Problems reprioritized. Patient report given, questions answered & plan of care reviewed with MARTHA JOSEPH.
--- NOTE | 2021-07-29 06:11 | NUR ---
Problems reprioritized. Patient report given, questions answered & plan of care reviewed with ANANDA JOSEPH.
[2021-07-29 06:30] LABS: BASOPHILS % (AUTO) 0.2 % (0-1); EOSINOPHILS % (AUTO) 0.2 % (0-6); HEMATOCRIT 22.4 % (42.0-52.0); HEMOGLOBIN 7.3 g/dl (14.0-17.9); LYMPHOCYTES # (AUTO) 0.4 X10'3 (1.1-4.8); LYMPHOCYTES % (AUTO) 5.7 % (21-51); MEAN CORPUSCULAR HEMOGLOBIN 30.6 PG (27.0-31.0); MEAN CORPUSCULAR HGB CONC 32.5 g/dL (33.0-36.5); MEAN CORPUSCULAR VOLUME 94.3 FL (78-98); MEAN PLATELET VOLUME 7.8 FL (7.4-10.4); MONOCYTES % (AUTO) 13.2 % (2-12); NEUTROPHILS # (AUTO) 6.1 X10'3 (1.8-7.7); NEUTROPHILS % (AUTO) 80.7 % (42-75); PLATELET COUNT 289 X10'3 (140-440); RED BLOOD COUNT 2.38 X10'6 (4.70-6.10); WHITE BLOOD COUNT 7.6 X10'3 (4.5-11.0)
[2021-07-29 06:56] LABS: ALANINE AMINOTRANSFERASE 135 U/L (12-78); ALBUMIN 2.9 G/DL (3.4-5.0); ALBUMIN/GLOBULIN RATIO 0.8 (1.1-1.5); ALKALINE PHOSPHATASE 122 IU/L (46-116); ANION GAP 5 (8-16); ASPARTATE AMINO TRANSFERASE 98 U/L (10-37); BILIRUBIN,TOTAL 0.5 MG/DL (0.1-1.0); BLOOD UREA NITROGEN 59 MG/DL (7-18); BUN/CREATININE RATIO 25.9 (5.4-32.0); CALCIUM 9.2 MG/DL (8.5-10.1); CHLORIDE 106 MMOL/L (99-107); CHOLESTEROL 105 MG/DL (0-200); CREATININE 2.28 MG/DL (0.60-1.10); GLUCOSE 139 MG/DL (70-104); HDL CHOLESTEROL 35 MG/DL (35-60); LDL CHOLESTEROL 57 MG/DL (50-100); MAGNESIUM 2.4 MG/DL (1.5-2.4); POTASSIUM 4.7 MMOL/L (3.5-5.1); SODIUM 147 MMOL/L (135-145); TOTAL CARBON DIOXIDE 36.3 MMOL/L (24-32); TOTAL PROTEIN 6.4 G/DL (6.4-8.2); TRIGLYCERIDES 50 MG/DL (20-135); eGFR 28 ML/MIN
[2021-07-29] MEDS ORDERED: levoFLOXACIN-Levaquin 500mg/D5 100 ML IV SCH (08:00)
[2021-07-29] MEDS: K and/or MAG REPLACEMENT MC SCH ×2 (08:00→19:23)
[2021-07-29] MEDS ORDERED: enoxaparin 40mg/0.4ml syringe SUBCUT SCH (08:00)
[2021-07-29] MEDS ORDERED: metoprolol succinate 25mg (24-HOUR) SR. Tablet PO SCH (08:00)
[2021-07-29] MEDS: budesonide 0.5mg/2ml UD nebule IH SCH ×2 (08:19→19:48)
[2021-07-29] MEDS: cyanocobalamin 500mcg tablet PO SCH (08:48)
[2021-07-29] MEDS: tamsulosin 0.4mg capsule PO SCH (08:48)
[2021-07-29] MEDS: lactobacillus rhamnosus 10,000 MMU CELLS/CAPSULE PO SCH ×2 (08:49→20:09)
[2021-07-29] MEDS: aspirin 81mg, enteric-coated 1 TAB TABLET.DR PO SCH (08:49)
[2021-07-29] MEDS: ascorbic acid 500mg tablet PO SCH ×2 (08:49→20:08)
[2021-07-29] MEDS: clopidogrel 75mg tablet PO SCH (08:49)
[2021-07-29] MEDS: cholecalciferol (vitamin D3) 1,000 unit (25mcg) tablet PO SCH (08:49)
[2021-07-29] MEDS: ferrous sulfate 325mg tablet PO SCH ×2 (08:49→20:09)
[2021-07-29] MEDS: docusate sod 100mg capsule PO SCH ×2 (08:50→20:09)
[2021-07-29] MEDS: folic acid 0.4mg tablet PO SCH (08:50)
[2021-07-29] MEDS: levoTHYROXINE 75mcg tablet PO SCH (08:50)
[2021-07-29] MEDS ORDERED: sodium bicarbonate (8.4%) 1 mEq/ml syringe IV ONE (11:05)
[2021-07-29] MEDS ORDERED: sodium polystyrene sulfonate 15gm/60ml oral suspension PO ONE (11:05)
--- NOTE | 2021-07-29 11:30 | NUR ---
Patient has been having repeat episodes of 2nd degree, Mobitz 1. Attempted to capture it on 12 lead EKG but was unsuccessful. Dr. Villegas made aware.
--- NOTE | 2021-07-29 18:28 | NUR ---
Patient in room PCU 3028. I have received report from JAKE Todd and had the opportunity to ask questions and assume patient care.
--- NOTE | 2021-07-29 18:49 | NUR ---
Problems reprioritized. Patient report given, questions answered & plan of care reviewed with Cyndi JOSEPH.
[2021-07-29] MEDS: famotidine 20mg tablet PO SCH (20:09)
[2021-07-29] MEDS: atorvastatin 10mg tablet PO SCH (20:09)
[2021-07-29] MEDS: insulin glargine (Lantus) pen - multi-dose SQ SCH (20:35)
[2021-07-30 02:00] VITALS: BP 138/92
[2021-07-30] MEDS: ipratropium 0.5 MG/2.5ML nebule NEB SCH ×4 (02:19→20:08)
--- NOTE | 2021-07-30 06:02 | NUR ---
Problems reprioritized. Patient report given, questions answered & plan of care reviewed with JAKE Todd.
[2021-07-30 06:35] LABS: BASOPHILS % (AUTO) 0.5 % (0-1); EOSINOPHILS # (AUTO) 0.1 X10'3 (0-0.9); EOSINOPHILS % (AUTO) 1.4 % (0-6); HEMATOCRIT 22.3 % (42.0-52.0); HEMOGLOBIN 7.2 g/dl (14.0-17.9); LYMPHOCYTES # (AUTO) 0.7 X10'3 (1.1-4.8); LYMPHOCYTES % (AUTO) 10.3 % (21-51); MEAN CORPUSCULAR HEMOGLOBIN 30.5 PG (27.0-31.0); MEAN CORPUSCULAR HGB CONC 32.5 g/dL (33.0-36.5); MEAN CORPUSCULAR VOLUME 93.9 FL (78-98); MEAN PLATELET VOLUME 7.9 FL (7.4-10.4); MONOCYTES # (AUTO) 1.1 X10'3 (0-0.9); MONOCYTES % (AUTO) 15.2 % (2-12); NEUTROPHILS # (AUTO) 5.1 X10'3 (1.8-7.7); NEUTROPHILS % (AUTO) 72.6 % (42-75); PLATELET COUNT 266 X10'3 (140-440); RED BLOOD COUNT 2.37 X10'6 (4.70-6.10); RED CELL DISTRIBUTION WIDTH 15.9 % (11.5-14.5)
[2021-07-30 06:59] LABS: ALANINE AMINOTRANSFERASE 108 U/L (12-78); ALBUMIN 2.7 G/DL (3.4-5.0); ALBUMIN/GLOBULIN RATIO 0.8 (1.1-1.5); ALKALINE PHOSPHATASE 108 IU/L (46-116); ANION GAP 4 (8-16); ASPARTATE AMINO TRANSFERASE 52 U/L (10-37); BILIRUBIN,TOTAL 0.5 MG/DL (0.1-1.0); BLOOD UREA NITROGEN 53 MG/DL (7-18); CALCIUM 9.1 MG/DL (8.5-10.1); CHLORIDE 106 MMOL/L (99-107); CREATININE 1.96 MG/DL (0.60-1.10); GLUCOSE 90 MG/DL (70-104); MAGNESIUM 2.3 MG/DL (1.5-2.4); POTASSIUM 4.1 MMOL/L (3.5-5.1); SODIUM 147 MMOL/L (135-145); TOTAL CARBON DIOXIDE 36.6 MMOL/L (24-32); TOTAL PROTEIN 6.1 G/DL (6.4-8.2); eGFR 33 ML/MIN
[2021-07-30] MEDS: budesonide 0.5mg/2ml UD nebule IH SCH ×2 (07:34→20:09)
[2021-07-30 07:42] LABS: NUCLEATED RED BLOOD CELLS 2 /100WBC (0-0); PLATELET ESTIMATE NORMAL; TOTAL CELLS COUNTED 100
[2021-07-30 07:43] LABS: HYPOCHROMASIA 1+
[2021-07-30 08:00] VITALS: BP 114/68
[2021-07-30] MEDS: K and/or MAG REPLACEMENT MC SCH ×2 (08:00→20:00)
[2021-07-30] MEDS: ferrous sulfate 325mg tablet PO SCH ×2 (08:31→22:11)
[2021-07-30] MEDS: lactobacillus rhamnosus 10,000 MMU CELLS/CAPSULE PO SCH ×2 (08:31→22:11)
[2021-07-30] MEDS: levoFLOXACIN-Levaquin 250mg/D5 50 ML IV SCH (08:31)
[2021-07-30] MEDS: ascorbic acid 500mg tablet PO SCH ×2 (08:32→22:12)
[2021-07-30] MEDS: aspirin 81mg, enteric-coated 1 TAB TABLET.DR PO SCH (08:32)
[2021-07-30] MEDS: folic acid 0.4mg tablet PO SCH (08:32)
[2021-07-30] MEDS: docusate sod 100mg capsule PO SCH ×2 (08:33→22:10)
[2021-07-30] MEDS: clopidogrel 75mg tablet PO SCH (08:33)
[2021-07-30] MEDS: levoTHYROXINE 75mcg tablet PO SCH (08:33)
[2021-07-30] MEDS: cholecalciferol (vitamin D3) 1,000 unit (25mcg) tablet PO SCH (08:33)
[2021-07-30] MEDS: cyanocobalamin 500mcg tablet PO SCH (08:33)
[2021-07-30] MEDS: tamsulosin 0.4mg capsule PO SCH (08:33)
[2021-07-30] MEDS: enoxaparin 30mg/0.3ml syringe SUBCUT SCH (08:34)
--- NOTE | 2021-07-30 10:00 | NUR ---
Hospitalist bedside and made aware of sustaining HR 130s that will occasionally drop to heart block second degree type 1. Patient currently on bipap but pt does not like being on it. An ABG was ordered and completed- after being reviewed, physician states okay for patient to be off bipap while awake.
[2021-07-30 10:10] LABS: ABG BASE EXCESS 10.7 mmol/L (-2.0-2.0); ABG HCO3 37.1 mmol/L (22.0-26.0); ABG OXYGEN SATURATION 96.9 % (94-97); ABG PCO2 (T) 63.4 mmHg (35.0-48.0); ABG PO2 (T) 97.1 mmHg (75.0-100.0); ALLEN'S TEST POSITIVE; FCOHb 0.5 % (0.0-3.9); FMetHb 0.4 % (0.0-1.5); RESPIRATORY RATE 20 b/min; TOTAL HEMOGLOBIN 7.8 G/dl (14.0-18.0)
[2021-07-30 11:00] VITALS: BP_SYST 114; BP_SYST 130; BP_DIAS 55; BP_DIAS 68
[2021-07-30 15:00] VITALS: BP 103/66
[2021-07-30 18:00] VITALS: BP 115/65
--- NOTE | 2021-07-30 18:21 | NUR ---
Problems reprioritized. Patient report given, questions answered & plan of care reviewed with Kevin JOSEPH.
--- NOTE | 2021-07-30 18:50 | NUR ---
Patient in room U 3028. I have received report from TREVON JOSEPH and had the opportunity to ask questions and assume patient care. Addendum: 07/30/21 at 1851 by Randa Torres RN Amended: Links added.
[2021-07-30] MEDS: insulin glargine (Lantus) pen - multi-dose SQ SCH (21:00)
[2021-07-30 22:00] VITALS: BP 94/73
[2021-07-30] MEDS: furosemide 20 MG/2 ML vial IV SCH (22:10)
[2021-07-30] MEDS: famotidine 20mg tablet PO SCH (22:11)
[2021-07-30] MEDS: atorvastatin 10mg tablet PO SCH (22:12)
--- NOTE | 2021-07-31 00:59 | NUR ---
PT RESTING ON HIS SIDE WITH CPAP ON.
[2021-07-31 02:00] VITALS: BP 140/58
[2021-07-31 06:00] VITALS: BP 119/75
[2021-07-31 06:06] LABS: BASOPHILS # (AUTO) 0.1 X10'3 (0-0.2); BASOPHILS % (AUTO) 0.7 % (0-1); EOSINOPHILS # (AUTO) 0.1 X10'3 (0-0.9); EOSINOPHILS % (AUTO) 1.4 % (0-6); HEMATOCRIT 25.5 % (42.0-52.0); HEMOGLOBIN 8.2 g/dl (14.0-17.9); LYMPHOCYTES # (AUTO) 0.9 X10'3 (1.1-4.8); LYMPHOCYTES % (AUTO) 11.2 % (21-51); MEAN CORPUSCULAR HEMOGLOBIN 30.8 PG (27.0-31.0); MEAN CORPUSCULAR HGB CONC 32.4 g/dL (33.0-36.5); MEAN PLATELET VOLUME 7.8 FL (7.4-10.4); MONOCYTES # (AUTO) 1.1 X10'3 (0-0.9); MONOCYTES % (AUTO) 14.5 % (2-12); NEUTROPHILS # (AUTO) 5.6 X10'3 (1.8-7.7); NEUTROPHILS % (AUTO) 72.2 % (42-75); PLATELET COUNT 292 X10'3 (140-440); RED BLOOD COUNT 2.68 X10'6 (4.70-6.10); RED CELL DISTRIBUTION WIDTH 15.8 % (11.5-14.5); WHITE BLOOD COUNT 7.7 X10'3 (4.5-11.0)
--- NOTE | 2021-07-31 06:33 | NUR ---
Problems reprioritized. Patient report given, questions answered & plan of care reviewed with OLMAN JOSEPH. Addendum: 07/31/21 at 0633 by Randa Torres RN Amended: Links added.
--- NOTE | 2021-07-31 06:40 | NUR ---
Problems reprioritized. Patient report given, questions answered & plan of care reviewed with RONIT JOSEPH. Addendum: 07/31/21 at 0640 by Randa Torres RN Amended: Links added.
--- NOTE | 2021-07-31 06:44 | NUR ---
Patient in room PCU 3028. I have received report from steff delcid and had the opportunity to ask questions and assume patient care.
[2021-07-31 06:54] LABS: ALANINE AMINOTRANSFERASE 86 U/L (12-78); ALBUMIN 2.8 G/DL (3.4-5.0); ALBUMIN/GLOBULIN RATIO 0.8 (1.1-1.5); ALKALINE PHOSPHATASE 104 IU/L (46-116); ANION GAP 5 (8-16); ASPARTATE AMINO TRANSFERASE 35 U/L (10-37); BILIRUBIN,TOTAL 0.5 MG/DL (0.1-1.0); BLOOD UREA NITROGEN 43 MG/DL (7-18); BUN/CREATININE RATIO 26.7 (5.4-32.0); CALCIUM 9.2 MG/DL (8.5-10.1); CHLORIDE 105 MMOL/L (99-107); CREATININE 1.61 MG/DL (0.60-1.10); GLUCOSE 90 MG/DL (70-104); MAGNESIUM 2.1 MG/DL (1.5-2.4); POTASSIUM 3.8 MMOL/L (3.5-5.1); SODIUM 147 MMOL/L (135-145); TOTAL CARBON DIOXIDE 36.6 MMOL/L (24-32); TOTAL PROTEIN 6.3 G/DL (6.4-8.2); eGFR 41 ML/MIN
[2021-07-31] MEDS: enoxaparin 30mg/0.3ml syringe SUBCUT SCH (07:22)
[2021-07-31] MEDS: levoTHYROXINE 75mcg tablet PO SCH (07:22)
[2021-07-31] MEDS: tamsulosin 0.4mg capsule PO SCH (07:22)
[2021-07-31] MEDS: furosemide 20 MG/2 ML vial IV SCH (07:22)
[2021-07-31] MEDS: ascorbic acid 500mg tablet PO SCH (07:23)
[2021-07-31] MEDS: cholecalciferol (vitamin D3) 1,000 unit (25mcg) tablet PO SCH (07:23)
[2021-07-31] MEDS: docusate sod 100mg capsule PO SCH (07:23)
[2021-07-31] MEDS: ferrous sulfate 325mg tablet PO SCH (07:23)
[2021-07-31] MEDS: folic acid 0.4mg tablet PO SCH (07:24)
[2021-07-31] MEDS: cyanocobalamin 500mcg tablet PO SCH (07:25)
[2021-07-31] MEDS: clopidogrel 75mg tablet PO SCH (07:25)
[2021-07-31] MEDS: aspirin 81mg, enteric-coated 1 TAB TABLET.DR PO SCH (07:25)
[2021-07-31] MEDS: lactobacillus rhamnosus 10,000 MMU CELLS/CAPSULE PO SCH (07:25)
[2021-07-31] MEDS: levoFLOXACIN-Levaquin 250mg/D5 50 ML IV SCH (07:26)
[2021-07-31] MEDS: budesonide 0.5mg/2ml UD nebule IH SCH (07:55)
[2021-07-31] MEDS: ipratropium 0.5 MG/2.5ML nebule NEB SCH ×2 (07:56→17:10)
[2021-07-31] MEDS: K and/or MAG REPLACEMENT MC SCH (08:00)
--- NOTE | 2021-07-31 09:59 | NUR ---
Page Sent PAGER ID: [phone] MESSAGE: 28 B cem Marvin is unable to bring in own med Vascepa. can it be discontinued ?
[2021-07-31 11:00] VITALS: BP 100/61
--- NOTE | 2021-07-31 12:11 | NUR ---
Malnutrition/DM consult: Pt admitted w/ SOB. Pt unsure of recent wt loss though wt is consistent from previous admits from 1 and 2 months ago. Pt able to eat 50-100% of meals on CCHO diet. No edema present. No visible signs of muscle waisting observed. At this time, pt does not meet minimum criteria for malnutrition. A1C 6.2 which is appropriate for age, DM education not indicated at this time, will continue to monitor Addendum: 07/31/21 at [address]án[address] Amended: Links added.
[2021-07-31 15:00] VITALS: BP 125/46
--- NOTE | 2021-07-31 15:11 | NUR ---
Page Sent promotional table spacer PAGER ID: [phone] MESSAGE: [id number] b Yon, pt wants to know if they will still be discharged today. pt did good with pt today, he was steady. shanon [phone]
[2021-07-31] MEDS ORDERED: LEVO500T89 PO (15:28)
[2021-07-31] MEDS ORDERED: PRED10TA23 PO (15:28)
--- NOTE | 2021-07-31 17:39 | NUR ---
pt IV was discharged, all info given to pts family, all belongings kept on pt and taken home. pt was wheeled down in wheelchair and left in a private vehicle.
[2021-08-01] MEDS ORDERED: enoxaparin 40mg/0.4ml syringe SUBCUT SCH (08:00)
== END 2021-07-31 17:33 | disposition home health service (06) | DRG 193 ==
LOC: ER 07:59 → ED HOLD 13:05 → PCU 3S 20:32
PROVIDERS: ADMIT Internal Medicine; ATTEND Internal Medicine
PROC: 5A09357 Assistance with Respiratory Ventilation, Less than 24 Consecutive Hours, Continuous Positive Airway Pressure (ICD-10-PCS; principal; 2021-07-28)
PROC: 5A09357 Assistance with Respiratory Ventilation, Less than 24 Consecutive Hours, Continuous Positive Airway Pressure (ICD-10-PCS; 2021-07-29)
PROC: 5A12012 Performance of Cardiac Output, Single, Manual (ICD-10-PCS; 2021-07-29)
PROC: 5A09357 Assistance with Respiratory Ventilation, Less than 24 Consecutive Hours, Continuous Positive Airway Pressure (ICD-10-PCS; 2021-07-30)
PROC: 5A09357 Assistance with Respiratory Ventilation, Less than 24 Consecutive Hours, Continuous Positive Airway Pressure (ICD-10-PCS; 2021-07-31)
DX: J18.9 Pneumonia, unspecified organism (principal); J96.21 Acute and chronic respiratory failure with hypoxia; J96.22 Acute and chronic respiratory failure with hypercapnia; J44.1 Chronic obstructive pulmonary disease with (acute) exacerbation; N39.0 Urinary tract infection, site not specified; J44.0 Chronic obstructive pulmonary disease with (acute) lower respiratory infection; E87.2 Acidosis; I50.22 Chronic systolic (congestive) heart failure; N17.9 Acute kidney failure, unspecified; I13.0 Hypertensive heart and chronic kidney disease with heart failure and stage 1 through stage 4 chronic kidney disease, or unspecified chronic kidney disease; E87.5 Hyperkalemia; R00.0 Tachycardia, unspecified; R00.1 Bradycardia, unspecified; Z20.822 Contact with and (suspected) exposure to COVID-19; G47.30 Sleep apnea, unspecified; D63.8 Anemia in other chronic diseases classified elsewhere; E11.22 Type 2 diabetes mellitus with diabetic chronic kidney disease; N18.9 Chronic kidney disease, unspecified; F17.200 Nicotine dependence, unspecified, uncomplicated; E78.5 Hyperlipidemia, unspecified; I25.10 Atherosclerotic heart disease of native coronary artery without angina pectoris; Z86.73 Personal history of transient ischemic attack (TIA), and cerebral infarction without residual deficits; Z91.041 Radiographic dye allergy status; Z98.61 Coronary angioplasty status; Z83.3 Family history of diabetes mellitus; Z82.49 Family history of ischemic heart disease and other diseases of the circulatory system; Z99.81 Dependence on supplemental oxygen; Z79.899 Other long term (current) drug therapy
CPT/HCPCS: 36415; 36600; 70450; 71045; 80053; 80061; 81001; 82803; 82948; 83036; 83605; 83735; 83880; 84443; 84484; 85007; 85018; 85025; 85610; 87040; 87077; 87081; 87088; 87186; 87635; 92950; 93005; 93306; 94640; 94660; 94760; 97110; 97116; 97162; 99285; A7015; C9803; G0378; J1650; J1815; J1940; J1956; J2310; J7626